=== PATIENT | male | born 1955 | race Hispanic/Latino ===

== ENCOUNTER 2020-06-08 05:59 | Day surgery (SDC) | payer MEDICARE ==
[2020-06-08] MEDS ORDERED: LACTATED RINGERS 1,000 ML IV SCH (06:00)
[2020-06-08] MEDS ORDERED: BACTERIOSTATIC SODIUM CHLORIDE 0.9% 30 ML VIAL INFILTRATI ONE (06:32)
[2020-06-08] MEDS ORDERED: ceFAZolin/STERILE WATER 2 GM/20 ML SYRINGE IV NR (07:00)
[2020-06-08] MEDS ORDERED: MIDAZOLAM 2 MG/2 ML INJ IV PRN (07:06)
--- NOTE | 2020-06-08 07:37 | Anesthesia Consultation ---
Anesthesia Consult and Med Hx Date of service: 06/08/20 - Airway Anesthetic Teeth Evaluation: Poor ROM Head & Neck: Adequate Mental/Hyoid Distance: Adequate Mallampati Class: Class II Intubation Access Assessment: Probably Good - Pulmonary Exam CTA: Yes - Cardiac Exam Cardiac Exam: RRR - Pre-Operative Health Status ASA Pre-Surgery Classification: ASA3 Proposed Anesthetic Plan: General - Pulmonary Hx Smoking: Yes (40pk yr smoker) Hx Respiratory Symptoms: No COPD: Yes (used maintenance inhaler this morning) Home Oxygen Therapy: No Hx Sleep Apnea: No (HERBERT PRE SCREEN HIGH RISK) - Cardiovascular System Hx Hypertension: Yes Hx Heart Attack/AMI: No Hx Percutaneous Transluminal Coronary Angioplasty (PTCA): No Hx Cardia Arrhythmia: No - Central Nervous System CVA: No Hx Back Pain: Yes - Gastrointestinal Hx Gastroesophageal Reflux Disease: Yes (controlled) - Endocrine Hx Renal Disease: No Hx Cirrhosis: No Hx Liver Disease: Yes (hx HCV s/p treatment) Hx Insulin Dependent Diabetes: No Hx Non-Insulin Dependent Diabetes: No Hx Thyroid Disease: No - Hematic Hx Anemia: No - Other Systems Hx Obesity: No
--- NOTE | 2020-06-08 07:38 | Anesthesia Day of Surgery ---
Anesthesia Day of Surgery - Day of Surgery Patient Examined: Yes Patient H&P Reviewed: Yes Patient is NPO: Yes
[2020-06-08] MEDS ORDERED: propofoL 200 MG/20 ML VIAL IV ONE (07:47)
[2020-06-08] MEDS ORDERED: ONDANSETRON 4 MG/2 ML INJ ONE (07:59)
[2020-06-08] MEDS ORDERED: fentaNYL 100 MCG/2 ML INJ ONE (07:59)
[2020-06-08] MEDS ORDERED: dexAMETHasone 20 MG/5 ML VIAL ONE (08:02)
[2020-06-08] MEDS ORDERED: WATER FOR IRRIG STERILE 1,500 ML BOTTLE IR ONE (08:04)
[2020-06-08] MEDS ORDERED: WATER FOR IRRIG STERILE 2000 ML IR ONE (08:05)
--- NOTE | 2020-06-08 08:43 | Short Stay Summary ---
Short Stay Documentation Date of service: 06/08/20 Narrative H&P: 64 yr male with BPH & several penile lesions for years--- bilat prox shaft - History Past Medical History: hypertension Past Surgical History: appendectomy - Allergies and Medications Current Medications: Allergies No Known Allergies Allergy (Verified 05/31/20 10:18) Home Medications Medication Instructions Recorded Confirmed Last Taken Type Cyclobenzaprine [Flexeril] 10 mg PO TID PRN 05/31/20 05/31/20 06/07/20 History Fluticasone Propion/Salmeterol 1 puff IH BID 05/31/20 05/31/20 06/08/20 04:00 History [Wixela 100-50 Inhub] Ibuprofen [Motrin] 800 mg PO Q8HR PRN 05/31/20 05/31/20 06/02/20 History Meloxicam [Mobic] 15 mg PO DAILY 05/31/20 05/31/20 06/02/20 History Pantoprazole [Protonix] 40 mg PO QDAY 05/31/20 05/31/20 06/07/20 History lisinopriL [Zestril TAB] 40 mg PO QDAY 05/31/20 05/31/20 06/07/20 History traZODone [Desyrel] 150 mg PO QHS 05/31/20 05/31/20 06/07/20 History Active Medications Cefazolin Sodium (Ancef/Sterile Water 2 Gm/20 Ml) 2 gm IV PREOP NR Stop: 06/08/20 23:59 Fentanyl (Sublimaze) 50 mcg IV Q5MIN PRN PRN Reason: Pain , Severe (7-10) Lactated Ringer's (Lactated Ringers) 1,000 mls @ 100 mls/hr IV DIRECT ERMA Stop: 06/08/20 23:59 Last Admin: 06/08/20 06:50 Dose: 100 mls/hr Documented by: Midazolam HCl (Versed) 2 mg IV PREOP PRN PRN Reason: Anxiety Stop: 06/08/20 23:00 Last Admin: 06/08/20 07:16 Dose: 2 mg Documented by: - Physical exam General appearance: no acute distress, well-nourished Integumentary: no rash, no growths, no abnormal pigmentation Lungs: Clear to auscultation Heart: Regular rate, No murmurs Gastrointestinal: normal Male Genitourinary: normal Rectal Exam: normal rectal tone Extremities: no ischemia, No edema Neurological: Normal gait, Normal tone - Brief post op/procedure progress note Date of procedure: 06/08/20 Pre-op diagnosis: BPH & several penile lesions for years--- bilat prox shaft Post-op diagnosis: same Procedure: cysto, rpg, excision lesion, CO2 laser lesions Anesthesia: GETA Surgeon: ISRAEL LOAIZA Estimated blood loss: minimal Pathology: list (penile lesion) Specimen disposition: to lab Condition: stable - Hospital course Hospital course: bactrim, ultram, silvadene cream--twice a day - Disposition Condition at discharge: Stable Disposition: DC-01 TO HOME OR SELFCARE Short Stay Discharge Plan Follow up with: PRIMARY CARE, [Primary Care Provider] - 7 Days
[2020-06-08] MEDS ORDERED: traMADol 50 MG TAB PO PRN (09:09)
[2020-06-08] MEDS: fentaNYL 100 MCG/2 ML INJ IV PRN ×2 (09:15→09:25)
[2020-06-08 10:28] VITALS: BP 123/79
--- NOTE | 2020-06-08 10:44 | Post Anesthesia Evaluation ---
- Post Anesthesia Evaluation Patient Participated: Yes Airway Patent: Yes Stable Respiratory Function: Yes Nausea/Vomiting: No Temp > 96.8F: Yes Pain Manageable: Yes Adequeate Hydration: Yes Anesthesia Complications: No
--- NOTE | 2020-06-08 14:20 | Operative Report ---
PREOPERATIVE DIAGNOSIS: Multiple penile lesions (1 inch), bilateral shaft. POSTOPERATIVE DIAGNOSES: Multiple penile lesions (1 inch), bilateral shaft and benign prostatic hypertrophy. PROCEDURES: Cystoscopy, bilateral retrograde pyelograms, excision of penile lesions and CO2 laser ablation of penile lesions. SURGEON: Talha Huffman MD ANESTHESIA: General. ESTIMATED BLOOD LOSS: Minimal. FLUIDS: Crystalloid. COMPLICATIONS: No complications. INDICATIONS: This patient is a 64-year-old gentleman with a long history of penile lesions. He observed them for quite some time and presented to the office, requiring treatment. Risks, benefits, and complications were explained. The patient agreed to proceed with surgical intervention. DESCRIPTION OF PROCEDURE: The patient was taken to the operative suite, placed in a supine position. After adequate general anesthesia, he was placed in a dorsal lithotomy position, prepped and draped in a sterile fashion. Examination of the penis again, he had bilateral lesions, approximately 1 inch in diameter, bilaterally on the proximal shaft. He had circumcised penis. Cystoscopy was performed, normal urethra. He had some mild trilobar prostatic obstruction. His bladder, diffuse mild trabeculation. Both ureteral orifices in normal position. Bilateral retrograde pyelograms were obtained with an 8-Yemeni Freeman catheter and 8 mL of contrast. No filling defects or obstruction. Bladder was drained. Next, one of the satellite lesions on the left side of the penis was excised and sent for routine pathologic evaluation and this incision was closed with 3-0 chromic in interrupted fashion. Next, using a CO2 laser at 6 nicholson and then increased to 10 nicholson, CO2 laser ablation of the rest of the lesions were performed without difficulty. They were removed and approximately a 5 mm rim of normal tissue was also ablated. Silvadene cream was placed. The patient tolerated the procedure well. Rectal exam was benign. He was extubated and taken to the recovery room. He will go home on Silvadene, Bactrim and Ultram. Follow up in the office. JOB# [id number] [facility]/[place]
--- NOTE | 2020-06-08 14:51 | Fluoroscopy Report ---
FLUOROSCOPY RETROGRADE UROGRAPHY HISTORY: Elevated BPH, penile lesion FINDINGS: Fluoroscopy was provided by radiology during retrograde urography by the urologist. There i s normal filling of both renal collecting systems. No filling defect or abnormal dilatation is identi fied. IMPRESSION: Unremarkable bilateral retrograde pyelograms Fluoroscopy time: 5 seconds Fluoroscopic images: 4 Signer Name: Steve Plascencia Jr, MD Signed: 06/08/2020 1:20 PM Workstation Name: [id number]
== END 2020-06-08 06:00 | disposition home or self-care (01) ==
LOC: OR 05:59
PROVIDERS: ATTEND Urology
DX: N48.89 Other specified disorders of penis (principal); Z20.828 Contact with and (suspected) exposure to other viral communicable diseases; L82.1 Other seborrheic keratosis; N40.0 Benign prostatic hyperplasia without lower urinary tract symptoms; F17.210 Nicotine dependence, cigarettes, uncomplicated; I10 Essential (primary) hypertension; J44.9 Chronic obstructive pulmonary disease, unspecified; K21.9 Gastro-esophageal reflux disease without esophagitis; M19.90 Unspecified osteoarthritis, unspecified site; Z72.89 Other problems related to lifestyle; Z79.899 Other long term (current) drug therapy; Z90.49 Acquired absence of other specified parts of digestive tract; Z98.890 Other specified postprocedural states
CPT/HCPCS: 52005; 54057; 74420; 88305; A4217; J0690; J1100; J2250; J2405; J2704; J3010; J7120; Q9967; U0003